=== PATIENT | female | born 1995 | race Caucasian/White ===

== ENCOUNTER 2022-09-21 14:39 | Emergency (ER) | payer OTHER ==
[~2022-09-21] VITALS: Ht 165.1 cm; Wt 95.5 kg
[2022-09-21 14:39] VITALS: BP 137/84
[2022-09-21 16:35] LABS: BASO % 0.4 % (0.0-1.0); EOS # 0.6 10^3/uL (0.0-0.5); EOS % 7.8 % (0.0-3.0); HEMATOCRIT 36.7 % (36.0-47.0); HEMOGLOBIN 12.1 g/dl (12.0-15.5); LYMPH # 3.5 10^3/uL (1.5-5.0); LYMPH % 49.4 % (24.0-44.0); MEAN CORPUSCULAR VOLUME 94.1 fl (80.0-96.0); MONO # 0.4 10^3/uL (0.0-0.8); MONO % 5.2 % (2.0-8.0); NEUTROPHILS # 2.6 10^3/uL (1.5-8.5); NEUTROPHILS % 37.1 % (36.0-66.0); PLATELET COUNT, AUTOMATED 243 10^3/uL (150-450); WHITE BLOOD COUNT 7.1 10^3/uL (4.0-10.0)
[2022-09-21 16:53] LABS: HCG, SERUM QUALITATIVE NEGATIVE (NEGATIVE)
[2022-09-21 16:59] LABS: ALT/SGPT 17 U/L (7.0-40); BILIRUBIN,DIRECT 0.1 MG/DL (<0.4); BILIRUBIN,TOTAL 0.4 MG/DL (0.3-1.2); BLOOD UREA NITROGEN 10 MG/DL (9-23); CALCIUM LEVEL 9.3 MG/DL (8.5-10.1); CARBON DIOXIDE LEVEL 26 MMOL/L (20-31); CHLORIDE LEVEL 103 MMOL/L (98-107); CREATININE FOR GFR 0.78 MG/DL (0.55-1.30); GLOMERULAR FILTRATION RATE > 60.0 (>60); GLUCOSE, FASTING 97 MG/DL (60-100); LIPASE 31 U/L (12-53); POTASSIUM SERUM 4.2 MMOL/L (3.5-5.1); SODIUM LEVEL 138 MMOL/L (136-145); TOTAL PROTEIN 7.1 G/DL (5.7-8.2)
[2022-09-21] MEDS ORDERED: KETOROLAC 30 MG/ML 1ML VIAL IV ONE (17:20)
[2022-09-21] MEDS ORDERED: NS 1,000 ML IV ONE (17:20)
[2022-09-21 17:47] LABS: APPEARANCE, URINE MANUAL CLEAR (CLEAR); BILIRUBIN, URINE MANUAL NEGATIVE (NEGATIVE); COLOR, URINE MANUAL YELLOW (YELLOW); GLUCOSE, URINE (UA) MANUAL NEGATIVE (NEGATIVE); KETONE, URINE MANUAL NEGATIVE (NEGATIVE); NITRITE, URINE MANUAL NEGATIVE (NEGATIVE); PROTEIN, URINE MANUAL NEGATIVE (NEGATIVE); SPECIFIC GRAVITY,URINE MANUAL 1.025 (1.002-1.035); UROBILINOGEN, URINE MANUAL NORMAL (NORMAL)
[2022-09-21 17:48] LABS: BLOOD URINE MANUAL TRACE (NEGATIVE); LEUKOCYTE ESTERASE, URINE MAN TRACE (NEGATIVE)
[2022-09-21 18:06] LABS: BACTERIA, URINE MOD AMOUNT; RBC, URINE 0-1 /hpf (0-3); SQUAMOUS EPITHELIAL CELL URINE LARGE AMOUNT /hpf (SMALL AMT)
[2022-09-21 18:19] LABS: RSV AMPLIFICATION NEGATIVE (NEGATIVE)
[2022-09-21] MEDS ORDERED: ISOVUE-370 76% 100ML VIAL As Ordered ONE (19:29)
== END 2022-09-21 20:12 | disposition home or self-care (01) ==
LOC: M ED 14:39
DX: U07.1 COVID-19 (principal); R10.11 Right upper quadrant pain; Z88.8 Allergy status to other drugs, medicaments and biological substances
CPT/HCPCS: 74177; 76705; 80048; 80076; 81000; 81015; 83690; 84702; 84703; 85025; 87631; 96374; 99283; J1885

== ENCOUNTER 2022-09-24 01:08 | Emergency (ER) | payer OTHER ==
[~2022-09-24] VITALS: Ht 165.1 cm; Wt 95.5 kg
[2022-09-24 04:35] VITALS: BP 133/78
== END 2022-09-24 06:00 | disposition left against medical advice (07) ==
LOC: M ED 01:08
DX: Z53.21 Procedure and treatment not carried out due to patient leaving prior to being seen by health care provider (principal)

== ENCOUNTER 2024-12-12 21:18 | Emergency (ER) | payer OTHER ==
[~2024-12-12] VITALS: Ht 165.1 cm; Wt 94.2 kg
[2024-12-12 21:27] VITALS: BP 137/75; TEMP 97.6; O2SAT 98
== END 2024-12-13 00:25 | disposition left against medical advice (07) ==
LOC: M ED 21:18
DX: Z53.21 Procedure and treatment not carried out due to patient leaving prior to being seen by health care provider (principal)